=== PATIENT | female | born 1945 | race Caucasian/White ===

== ENCOUNTER 2016-05-25 16:59 | Observation (INO) | payer MEDICARE, MEDICAID ==
[~2016-05-25] VITALS: Ht 152.4 cm; Wt 54.9 kg
[~2016-05-25 16:59] MED LIST: AMLO10TA5 PO; BUSP15 PO; DICY10CA9 PO; ERGO400C PO; RISP0.254 PO; SYN25 PO; TOPI100T2 PO; ZES5 PO; [UNRECOGNIZED DRUG - CODE] PO; [UNRECOGNIZED DRUG - OTHER]; [UNRECOGNIZED DRUG - OTHER] PO
[2016-05-25 17:07] VITALS: BP 132/62; PULSE 78; O2SAT 98
[2016-05-25 18:13] LABS: APPEARANCE,URINE CLEAR (CLEAR,HAZY); COLOR,URINE YELLOW (YELLOW); OCCULT BLOOD,URINE NEGATIVE (NEGATIVE); PH,URINE 6.5 (5.0-8.0); UROBILINOGEN,URINE NORMAL (NORMAL)
--- NOTE | 2016-05-25 19:15 | ED.REPORT ---
HPI-Trauma Minor / Fall Date of Service May 25, 2016 ED Provider: MD Kyler This is a 71 year old female with a history of chronic back pain, L knee pain, bipolar disorder, ADHD brought to the emergency department by EMS complaining of L sided back pain that began after GLF just prior to arrival. Pt was walking to the bathroom in her home when she fell. Denies LOC, dizziness, numbness, tingling, fever, chills, shortness of breath, nausea, vomiting, or abdominal pain. Nursing Notes Stated Complaint: GLF Chief Complaint: Multiple Trauma/Fall Nursing Notes Reviewed: Yes Allergies: Coded Allergies: Sulfa (Sulfonamide Antibiotics) (Verified Allergy, Severe, 06/24/15) chlorpromazine HCl (Verified Allergy, Severe, tadive dyskinesia, 06/24/15) chlorpromazine (Unverified Allergy, Unknown, 06/24/15) Scheduled AmLODIPine-Expunged Drug, Do Not Renew! (AmLODIPine-Expunged Drug, Do Not Renew! ) 10 Mg Tablet 10 MG PO AM Buspirone-Expunged Drug, Do Not Renew! (Buspirone-Expunged Drug, Do Not Renew!) 15 Mg Tablet 15 MG PO BID Dicyclomine-Expunged Drug, Do Not Renew! (Dicyclomine-Expunged Drug, Do Not Renew!) 10 Mg Capsule 10 MG PO QID Ergocalciferol-Expunged Drug, Do Not Renew! (Vitamin D-Expunged Drug, Do Not Renew!) 400 Unit Capsule 2,000 UNIT PO AM Famotidine-Expunged Drug, Do Not Renew! (Famotidine-Expunged Drug, Do Not Renew! ) 20 Mg Tablet 20 MG PO 1000 Levothyroxine-Expunged Drug, Do Not Renew! (Synthroid-Expunged Drug, Do Not Renew!) 25 Mcg Tablet 0.025 MG PO DAILYAC Lisinopril-Expunged Drug, Do Not Renew! (Lisinopril-Expunged Drug, Do Not Renew! ) 5 Mg Tablet 5 MG PO AM Risperidone-Expunged Drug, Do Not Renew! (Risperidone-Expunged Drug, Do Not Renew!) 0.25 Mg Tablet 0.5 MG PO BID Topiramate-Expunged Drug, Do Not Renew! (Topiramate-Expunged Drug, Do Not Renew! ) 100 Mg Tablet 100 MG PO HS Miscellaneous Medications ([daily vit & min]) ([psyllium seed husk]) 1 TSP PO 1-3 times daily as needed constipation General Time Seen by MD: 19:14 Chief Complaint Fall Hx Obtained From: Patient Arrived By: Ambulance Onset Occurred: Just prior to arrival Symptom Duration: Since onset Severity: Current: Mild Pertinent Negative: Pt denies other symptoms Recent Healthcare: No recent doctor visit, No recent hospitalization Similar Sx Previous: No Past Medical History Past Medical History Notes: PCP: Dr. Landa Past Medical History Bipolar ADHD Reports: Hypertension Reports: Depression, Schizophrenia, Thyroid disease Past Surgical History Left hip replacement Reports: Appendectomy, Cholecystectomy, Tonsillectomy Reports: Tubal ligation Family History Mother had some longstanding psychotic disorder. Smoking History Never Smoker Social History Alcohol Use: Denies alcohol use Drug Use: Denies drug use Other Social History: Ambulatory Status Walker Review of Systems Constitutional: Denies: Chills, Fever Respiratory: Denies: Shortness of breath Musculoskeletal: Reports: Back pain Neurologic: Denies: Change LOC, Headache, Lightheaded, Numbness Complete sys rev & neg: except as marked. GI: Denies: Abdominal pain, Constipation, Diarrhea, Nausea, Vomiting Physical Exam Initial Vital Signs Vital Signs (First) Date Time Temp Pulse Resp B/P Pulse Ox O2 Delivery O2 Flow Rate FiO2 05/25/16 17:07 36.6 78 132/62 98 Room Air Initial VS: Unavailable Head / Eyes: Atraumatic, Normocephalic, PERRL ENT: Mucous membranes moist, Conjunctiva normal, No scleral icterus Respiratory: Breath sounds normal, Clear to auscultation, No respiratory distress Cardiovascular: Regular rate & rhythm, Heart sounds normal, Intact distal pulses Extremities: Vascular intact, Neuro intact, No swelling, No tenderness Skin: Warm, Dry, No cyanosis Psychiatric: Mood/affect normal, Behavior normal, Normal thought content General/Constitutional: Awake, Alert Making gyrating movements of arms and legs, difficult to understand Neck: Atraumatic, Supple, Full range of motion, No swelling, Non-tender, No midline vertebral tend Abdomen: Atraumatic, Soft, Non-tender, No guarding, No rebound, No distention Multiple well-healed surgical scars Back: Full range of motion Midline L5 tenderness to palpation Interpretation & Diagnostics Lab Results Interpretation Result Diagram: 05/25/16 1950 05/25/16 1950 Test 05/25/16 17:58 05/25/16 18:00 05/25/16 19:50 Hold Urine Received (Received) Urine Color Yellow (YELLOW) Urine Appearance Clear (CLEAR,HAZY) Urine pH 6.5 (5.0-8.0) Urine Specific [place] <1.005 (1.003-1.035) Urine Protein Negativemg/dL (NEG,TRACE) Urine Glucose (UA) Negativemg/dL (NEGATIVE) Urine Ketones Negativemg/dL (NEGATIVE) Urine Occult Blood Negative (NEGATIVE) Urine Nitrite Negative (NEGATIVE) Urine Bilirubin Negative (NEGATIVE) Urine Urobilinogen Normalmg/dL (NORMAL) Urine Leukocyte Esterase Large (NEGATIVE) Urine RBC 0-2/hpf (0-2) Urine WBC 11-50/hpf (0-5) Urine Epithelial Cells Occasional/hpf (NONE-MOD) Urine Crystals None seen (NONE SEEN) Urine Bacteria Few/hpf (NONE-FEW) Urine Hyaline Casts None/lpf (NONE) Urine Granular Casts None seen (NONE SEEN) Urine Waxy Casts None seen (NONE SEEN) Urine Red Blood Cell Casts None seen (NONE SEEN) Urine White Blood Cell Casts None seen (NONE SEEN) Urine Mucus None seen (None Seen) Urine Trichomonas None seen (NONE SEEN) Urine Yeast None (NONE SEEN) Urinalysis Comment None Urine Culture Reflexed Indicated White Blood Count 8.9th/mm3 (3.8-10.1) Red Blood Count 4.57mil/mm3 (3.90-5.20) Hemoglobin 13.9g/dL (12.0-15.6) Hematocrit 42.4% (35.0-46.0) Mean Corpuscular Volume 92.8fL (81-100) Mean Corpuscular Hemoglobin 30.4pg (27.0-35.0) Mean Corpuscular Hemoglobin Concent 32.8% (32.0-37.0) Red Cell Distribution Width 12.8% (12.3-15.4) Platelet Count 285bil/L (150-400) Neutrophils (%) (Auto) 56.5% (40-74) Lymphocytes (%) (Auto) 32.9% (14-46) Monocytes (%) (Auto) 8.9% (4-12) Eosinophils (%) (Auto) 1.2% (0-5) Basophils (%) (Auto) 0.3% (0-3) Sodium Level 144mEq/L (134-144) Potassium Level 4.3mEq/L (3.5-5.2) Chloride Level 105mEq/L (97-108) Carbon Dioxide Level 28mmol/L (18-29) Blood Urea Nitrogen 20mg/dL (8-27) Creatinine 0.83mg/dL (0.57-1.00) Estimat Glomerular Filtration Rate 97mL/min (>59) Glucose Level 88mg/dL (60-99) Calcium Level 10.0mg/dL (8.5-10.1) Total Bilirubin 0.2mg/dL (0.0-1.2) Aspartate Amino Transf (AST/SGOT) 17U/L (0-50) Alanine Aminotransferase (ALT/SGPT) 11U/L (0-32) Alkaline Phosphatase 69U/L (25-165) Total Protein 6.5g/dL (6.4-8.4) Albumin 4.1g/dL (3.4-5.0) Hold Joseph Top Tube Received (Received) Re-Eval/Medical Decision Med Decision/Clinical Course 71-year-old female with past medical history of psychiatric disorder brought in by EMS after a fall. Differential diagnosis includes but is not limited to fracture versus dislocation versus contusion versus urinary tract infection. Patient does have evidence of UTI, and a slightly altered at this time. CT scan of her back did not show any acute fracture. She had 5 out of 5 strength in all 4 extremities. Given her UTI, and slightly altered mental status, I have admitted her to the hospitalist service for IV antibiotics. She is amenable to the plan. Re-Evaluation/Progress : Time of Eval: 21:36 Re-Evaluation/Progress Note: Discussed plan for admission, all questions addressed. Consultation : Referral / Consult Name: Malena Burnett DO Consulted With: Hospitalist Call Returned at: 21:35 Tire Rebuilder: Accepts admit Counseled Regarding: Diagnosis, Lab results, Need for follow-up, Need for admission Discharge & Departure Impression: Primary Impression: UTI (urinary tract infection) Urinary tract infection type: site unspecified Hematuria presence: without hematuria Qualified Code: N39.0 - Urinary tract infection, site not specified Disposition: ADMITTED TO HOSPITAL Discharge Condition All VS Reviewed: Yes Condition: Stable Referrals: Fransico Landa MD (PCP) Scribe Attestation Portions of this note were transcribed by Quan Humphreys. I, Dr. Chávez personally performed the history, physical exam and medical decision-making; I reviewed and confirmed the accuracy of the information in the transcribed note. Signed by: gonzalo May. 05/25/2016, 23:00. Ruthie Chávez MD May 25, 2016 19:15 QUAN HUMPHREYS May 25, 2016 19:16
[2016-05-25] MEDS ORDERED: cefTRIAXone Inj 1,000 MG in Dextrose 5% Minibag Plus 50 ML IV SCH (19:45)
[2016-05-25] MEDS ORDERED: 0.9% Sodium Chloride 500 ML IV ONE (19:45)
[2016-05-25 20:01] LABS: BASOPHILS % (AUTO) 0.3 % (0-3); EOSINOPHILS % (AUTO) 1.2 % (0-5); MONOCYTES % (AUTO) 8.9 % (4-12); Mean Corpuscular Hemoglobin 30.4 pg (27.0-35.0); Mean Corpuscular Volume 92.8 fL (81-100); NEUTROPHILS % (AUTO) 56.5 % (40-74); Platelet Count 285 bil/L (150-400)
[2016-05-25 20:11] VITALS: BP 120/59; PULSE 79; O2SAT 98
[2016-05-25] MEDS ORDERED: Polyethylene Glycol (PEG) 17 Gm Powder PO PRN ×2 (21:50→23:40)
[2016-05-25] MEDS ORDERED: Alum-Mag Hydrox-Simeth 30 mL Suspension PO PRN ×2 (21:50→23:40)
[2016-05-25] MEDS ORDERED: Ondansetron 2 mg/mL 2 mL Inj IVPUSH PRN ×2 (21:50→23:40)
--- NOTE | 2016-05-25 22:30 | NUR ---
Admission Pt arrived from the ER after receiving report from Ruthie Hobbs RN. Alert and oriented x 3 with episodes of confusion and "word salad" usage. The pt is very muffled at times;however, she was able to given a complete health hx and list of home medication taken. No s/sx of distress noted at this time. Denies shortness of breath, chest pain, general discomfort, and abd pain. Vitals stable/afebrile on RA with SL to RT wrist. The pt changed into a gown after encouragement and assisted with bedpan usage. The pt is resting in bed at this time without distress. Will continue to monitor for changes to health status.
[2016-05-25 22:38] VITALS: BP 130/70; PULSE 69; RESP 20; O2SAT 97
--- NOTE | 2016-05-26 02:59 | PCM.HPMED ---
Subjective Date of Service May 25, 2016 Primary Provider: Admitting Physician: Malena Burnett DO Primary Care Physician: Fransico Landa MD Attending Physician: Malena Burnett DO Chief Complaint: Back pain History of Present Illness: Patient is a 71-year-old female with chronic back pain, depression, anxiety, bipolar disorder and hypertension presenting with back pain following a ground level fall. Patient reports walking to the bathroom from her bedroom and along the way sustained a fall. She reports her right leg gave way resulting on her falling onto her back and hitting her head, though she denies losing consciousness. Patient subsequently used her Life Alert bracelet to summon EMS as she was unable to get up. At time of visit, the patient reports her pain has improved since her fall but difficult to assess due to her chronic back pain. Patient states she usually requires a walker to help her ambulate. Patient endorses urinary frequency, which she attributes to increased fluid intake but otherwise denies fever, chills, dysuria, abdominal pain, chest pain, shortness of breath. Patient is insistent about leaving tomorrow early in the morning as she has a caregiver scheduled to visit her at 9AM. In the ED, vitals: temp 36.7, HR 78, BP 132/68. CBC and CMP are unremarkable. UA with large leukocyte esterase, pyuria and few bacteria. Review of Systems: A comprehensive review of systems was conducted with the patient and found to be negative except as above in the History of Present Illness. Allergies Coded Allergies: Sulfa (Sulfonamide Antibiotics) (Verified Allergy, Severe, 06/24/15) chlorpromazine HCl (Verified Allergy, Severe, tadive dyskinesia, 06/24/15) chlorpromazine (Unverified Allergy, Unknown, 06/24/15) Home Medications From outpatient records in [facility] (04/24/2016). Requires reconciliation. ASA 81mg daily Benztropine 1mg BID Buspirone 15mg BID Calcium 500 + Vit D 500mg BID Celexa 10mg BID Dicyclomine 10mg QID Enbrel inject 1mL subQ weekly Multivitamin one tablet daily Pantoprazole 40mg daily Trazodone 25mg daily Tylenol 500mg Q6 hours PRN Zyrtec 5mg daily PMH Chronic back pain Right knee and hip pain Scoliosis Spinal stenosis Hypertension Bipolar affective disorder Osteoporosis IBS Tardive dyskinesia Depression and anxiety . Surgical History Appendectomy Cholecystectomy Tonsillectomy Left hip replacement . Family History Mother with rheumatoid arthritis and schizophrenia Father with prostate cancer at [id number] Social History Hx Alcohol Use: No Hx Substance Use: No Hx Tobacco Use: No Smoking Status: Never Smoker Living Arrangement: Alone (Currently living alone as is rehabilitating at [facility]) Exam Vital Signs Vital Sign - Last Date Time Temp Pulse Resp B/P Pulse Ox O2 Delivery O2 Flow Rate FiO2 05/25/16 22:38 36.3 69 20 130/70 97 Room Air Exam General: Patient lying in bed. No acute distress, well-developed, well-nourished , appropriately interactive. Movement disorder. HEENT: Normocephalic, atraumatic. External ears without defect. Difficult to assess pupils as patient has difficulty trying to keep them open. Moist mucosa. Poor dentition. Neck: Supple. No lymphadenopathy or thyromegaly. Cardiovascular: Regular rate and rhythm with no murmurs, rubs, or gallops appreciated Pulmonary: Clear to auscultation bilaterally with no crackles, wheezes, or rhonchi. Normal respiratory effort with no use of accessory muscles. Abdomen: Bowel tones present. Soft, nontender, nondistended. Extremities: No clubbing, cyanosis, edema, or lymphadenopathy appreciated. Muscle atrophy, especially in lower extremities. Skin: Normal temperature, turgor, and texture; no rash, ulcers, or subcutaneous nodules appreciated. Neurological: Cranial nerves grossly intact. Psychiatric: Flight of ideas and tangential during conversation. Lab and Diagnostics Result Diagram: 05/25/16194905/25/161949 Assessment & Plan Patient is a 71-year-old female with chronic back pain, bipolar disorder and hypertension presenting with back pain following a ground level fall. 1. Acute on chronic back pain post ground level fall. Present on admission. Active -Back pain improving -Read of CT back pending -Acetaminophen PRN pain 2. Acute urinary tract infection. Present on admission. Active -UA with large leukocyte esterase, few bacteria and pyuria -Ceftriaxone -Urine culture pending 3. Depression and anxiety, chronic. Present on admission -Continue home dose buspirone, Celexa 4. Tardive dyskinesia, chronic. Present on admission -Continue home dose benztropine 5. Hypertension, chronic. Present on admission -Currently normotensive -Follow vitals 6. Osteoporosis, chronic. Present on admission -Continue home dose vitamin and mineral supplementation Patient Status: Patient is admitted under observation status with expected length of stay less than 2 midnights due to severity of presenting symptoms and risk of adverse event. VTE Prophylaxis: SCDs Resuscitation Status: DNR/DNI:Do Not Resuscitate/Intubate Attending Statement The patient was seen and examined together with house staff on 05/25/2015 and I agree with the history, exam and plan as outlined in the note above. Sunil Hobbs DO May 25, 2016 23:36 Malena Burnett DO May 26, 2016 03:20
--- NOTE | 2016-05-26 03:45 | NUR ---
CT Pt with CT.
--- NOTE | 2016-05-26 04:00 | NUR ---
CT Pt back from CT.
[2016-05-26 06:17] VITALS: BP 143/63; PULSE 66; RESP 20; O2SAT 95
[2016-05-26] MEDS ORDERED: DICY10CA13 PO (06:52)
[2016-05-26] MEDS ORDERED: BUSP15TA3 PO (06:52)
[2016-05-26] MEDS ORDERED: ERGO2000 PO (06:52)
--- NOTE | 2016-05-26 08:01 | NUR ---
pt is scheduled for a nuclear stress test-NPO medications are being held until after test Addendum: 05/26/16 at 1613 by MAVIS SRAAVIA RN morning report was an error. stress test was for pt previously in the same room.
[2016-05-26] MEDS: Pantoprazole 40 mg ER24 Tablet PO SCH (08:52)
[2016-05-26] MEDS: BusPIRone 15 mg Dividose Tablet PO SCH ×2 (08:52→21:22)
--- NOTE | 2016-05-26 11:11 | DRSVH ---
PROCEDURE: CT BRAIN WITHOUT CONTRAST ([id number]) INDICATIONS: ground level fall TECHNIQUE: Noncontrast 4.5 mm thick angled axial sections acquired from the foramen magnum to the vertex, with c oronal reformats. COMPARISON: [facility], CT, BRAIN W/O CONTRAST, 05/24/2010, 0:06. FINDINGS: Image quality: Excellent. CSF spaces: Basal cisterns are patent. No extra-axial fluid collections. The ventricles are symmet jeison in size and shape. Brain: No intracranial bleeds or masses. There is cerebral volume loss for age, with resultant vent ricular and sulcal prominence. There are periventricular and deep white matter chronic small vessel ischemic changes. There is intracranial internal carotid artery atherosclerosis. 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 Skull and face: Calvarium and visualized facial bones appear intact, without suspicious lesions. Sinuses: Visualized sinuses and mastoids are clear. IMPRESSION: 1. No acute intracranial process. 2. Moderate atrophy and chronic microvascular ischemic changes. Dictated by: Ashley Marc M.D. on 05/26/2016 at 11:06 Approved by: Ashley Marc M.D. on 05/26/2016 at 11:09
--- NOTE | 2016-05-26 11:34 | NUR ---
Social Work Screen Note: SW met with patient at bedside to discuss discharge plan. Patient is a 71 year old female admitted under observations status on 05/25/16 for UTI. Patient has periods of confusion during assessment. Patient states residing in [facility] with . Patient states is currently at [facility] at this time. Patient states PCP as MD Landa. Patient pharmacy of choice as [facility]. Patient has HHC history with [facility] in past. Patient uses a cane and walker at bedside. Patient states having no previous SNF history. Patient states being active with [employer] for caregiver support at home M-Wed. Patient payer as [employer] and [facility]. SW contacted [facility] and spoke with cranberry farm supervisor Monica who states that patient baseline confused. Patient receives services -Wednesday with primary jig operator as Anitha. Services provided 7:30am-10pm at home. Caregiver Anitha has no availability to begin services with patient today. Services to begin tomorrow. MD aware and to hold patient tonight for discharge tomorrow. Patient caregiver to report to hospital tomorrow morning to discharge patient home and provide caregiver support. SW to await PT eval today to ensure home safety needs. SW to follow PLAN: Home with caregiver support via [employer] [facility]. Caregiver support to begin tomorrow at 7:30am. Caregiver Anitha to provide transport home at discharge tomorrow. SW to follow Andrade MUNOZ Addendum: 05/26/16 at 1153 by RANDALL DISLA Amended: Links added.
[2016-05-26 13:49] VITALS: BP 124/78; PULSE 86; RESP 20; O2SAT 96
--- NOTE | 2016-05-26 15:22 | PCM.PNMED ---
Subjective Date of Service May 26, 2016 Subjective denies any new issues/complaints. says back pain better today Exam Vital Signs Vital Sign - Last Date Time Temp Pulse Resp B/P Pulse Ox O2 Delivery O2 Flow Rate FiO2 05/26/16 13:49 36.8 86 20 124/78 96 Room Air Intake and Output 05/25/16 05/25/16 05/26/16 Cumulative From/Thru 15:00 23:00 07:00 05/25/16 17:07 - 05/26/16 07:00 Intake Total 500 ml 400 ml 900 ml Output Total 800 ml 800 ml Balance 500 ml -400 ml 100 ml Intake Oral 400 ml 400 ml IV Total 500 ml 500 ml Output Urine Total 800 ml 800 ml # Bowel Movements 0 0 General: Alert, Oriented X3, Cooperative, No Acute Distress Head: Normal Eyes: Scleral Anicteric Nose: Mucous Membr Moist/[place] Mouth: Mucous Membr Moist/[place] Neck: Supple Chest & Lungs: Chest Wall Normal, Clear to auscultation & percussion Cardiovascular: Regular Rate/Rhythm Abdomen: Non-tender, Non-distended, Normoactive bowel tones, Soft Extremities: No cyanosis/clubbing/edma bilat Neurological: Grossly Neurologically Intact, Normal Speech IVs and Medications Medications Reviewed: Medications were reviewed in detail Lab and Diagnostics Result Diagram: 05/25/16194905/25/161949 X-Rays, CTs and MRIs Date of Service: 05/26/16 0254 PROCEDURE: CT BRAIN WITHOUT CONTRAST ([id number]) IMPRESSION: 1. No acute intracranial process. 2. Moderate atrophy and chronic microvascular ischemic changes. Dictated by: Ashley Marc M.D. on 05/26/2016 at 11:06 Approved by: Ashley Marc M.D. on 05/26/2016 at 11:09 Assessment & Plan 71-year-old female with chronic back pain, bipolar disorder and hypertension presenting with back pain following a ground level fall. # Acute on chronic back pain post ground level fall. Present on admission. Improved -Back pain improving -f/u pending lumbar CT # Acute urinary tract infection. Present on admission. Active -UA with large leukocyte esterase, few bacteria and pyuria -Ceftriaxone (day 2) -Urine culture pending # Depression and anxiety, chronic. Present on admission. stable -Continue home dose buspirone, Celexa # Tardive dyskinesia, chronic. Present on admission -Continue home dose benztropine # Hypertension, chronic. Present on admission -Currently normotensive -Follow vitals # Osteoporosis, chronic. Present on admission -Continue home dose vitamin and mineral supplementation Dispo: likely home with caregiver tomorrow pending lumbar CT and improved symptoms VTE Prophylaxis: SCDs VTE Mechanical Devices: Intermittant Pneumatic CD Resuscitation Status: DNR/DNI:Do Not Resuscitate/Intubate Time spent 25 min Kaushal Lopez May 26, 2016 15:22
--- NOTE | 2016-05-26 18:22 | NUR ---
Case Management: THELMA explained to patient at 1715, all questions answered. Signed original in chart, pt given a copy. Phyllis Landon RN
[2016-05-26] MEDS ORDERED: cefTRIAXone Inj 1,000 MG in Dextrose 5% Minibag Plus 50 ML IV SCH (20:30)
[2016-05-26] MEDS ORDERED: 0.9% Sodium Chloride 250 ML ONE (21:18)
[2016-05-27 04:28] VITALS: BP 109/71; PULSE 73; RESP 18; O2SAT 97
--- NOTE | 2016-05-27 06:20 | NUR ---
Voiding started patient on Rocephin IV tonight. patient up to bathroom. voiding regularly. denies pain/discomfort with voiding. drinking cranberry juice frequently at bedside. will continue to monitor.
[2016-05-27] MEDS: Pantoprazole 40 mg ER24 Tablet PO SCH (08:04)
[2016-05-27] MEDS: BusPIRone 15 mg Dividose Tablet PO SCH (08:05)
--- NOTE | 2016-05-27 09:00 | NUR ---
Social Work: Discharge Data: Pt is on day 2 of hospitalization. EMR reviewed. PT recommending HH for pt. LEVI MAKER met with pt and caregiver at bedside, HH choice list given. Pt states that she prefers [facility]. LEVI MAKER referred pt to [facility] for RN/PT/OT. Spoke with Yuri Paz [phone]. Access given, F2F ready for MD to sign. No further d/c planning needs anticipated at this time. LEVI MAKER will continue to follow if needs arise. Assessment: Pt who is independent at baseline. Plan: Pt will d/c home via POV with caregiver this morning with [facility], RN/PT/OT. No further d/c planning needs anticipated at this time. LEVI MAKER will continue to follow if needs arise. ALEXANDER Lozoya
--- NOTE | 2016-05-27 09:21 | PCM.DIMED ---
Discharge Instructions Date of Service May 27, 2016 Dates of Hospitalization May 25, 2016 at 21:55 Discharge Diagnosis Discharge Diagnosis # Acute on chronic back pain post ground level fall. Present on admission. Improved # Suspected acute urinary tract infection ruled out with urine culture. # Depression and anxiety, chronic. Present on admission. stable # Tardive dyskinesia, chronic. Present on admission # Hypertension, chronic. Present on admission. stable. # Osteoporosis, chronic. Present on admission Medication Instructions Resume home medications as before Diet Low fat, Low Sodium, Heart Healthy Activity Home Health Phyical Therapy Call your provider Fever or Chills, Shortness of breath, Bleeding, Chest pain, Weakness (unilateral ) Patient Instructions Seek immediate medical attention if any new or worsening signs or symptoms occur. Follow-up plan 1. Followup with primary care provider as needed. Follow-up Provider: Fransico Landa MD, Masoud May 27, 2016 09:21
--- NOTE | 2016-05-27 09:50 | NUR ---
Discharge: Patient discharged to home @ approx 0950. IV d/c'd intact. Personal belongings sent home with patient. Reviewed home medication list, d/c instructions, and follow up appointment. Verbalized understanding. Patient escorted to main entrance via wheelchair accompanied by TAIL WORKER.
--- NOTE | 2016-05-27 17:42 | PCM.DC.MED ---
Discharge Summary Date of Service May 27, 2016 Dates of Hospitalization Date of Hospital Admission May 25, 2016 at 21:55 Date of Discharge: May 27, 2016 Providers: Admitting Physician: Malena Burnett DO Primary Care Physician: Fransico Landa MD Attending Physician: Malena Burnett DO Diagnosis at Time of Discharge Diagnosis at Time of Discharge # Acute on chronic back pain post ground level fall. Present on admission. Improved # Suspected acute urinary tract infection ruled out with urine culture. # Depression and anxiety, chronic. Present on admission. stable # Tardive dyskinesia, chronic. Present on admission # Hypertension, chronic. Present on admission. stable. # Osteoporosis, chronic. Present on admission Procedures XRay, CTs & MRIs Date of Service: 05/26/16 0254 PROCEDURE: CT BRAIN WITHOUT CONTRAST ([id number]) IMPRESSION: 1. No acute intracranial process. 2. Moderate atrophy and chronic microvascular ischemic changes. Dictated by: Ashley Marc M.D. on 05/26/2016 at 11:06 Approved by: Ashley Marc M.D. on 05/26/2016 at 11:[address] also reviewed and without any reported acute finding Brief History As noted in H&P by Dr. Hobbs: Patient is a 71-year-old female with chronic back pain, depression, anxiety, bipolar disorder and hypertension presenting with back pain following a ground level fall. Patient reports walking to the bathroom from her bedroom and along the way sustained a fall. She reports her right leg gave way resulting on her falling onto her back and hitting her head, though she denies losing consciousness. Patient subsequently used her Life Alert bracelet to [email or web address] as she was unable to get up. At time of visit, the patient reports her pain has improved since her fall but difficult to assess due to her chronic back pain. Patient states she usually requires a walker to help her ambulate. Patient endorses urinary frequency, which she attributes to increased fluid intake but otherwise denies fever, chills, dysuria, abdominal pain, chest pain, shortness of breath. Patient is insistent about leaving tomorrow early in the morning as she has a caregiver scheduled to visit her at 9AM. In the ED, vitals: temp 36.7, HR 78, BP 132/68. CBC and CMP are unremarkable. UA with large leukocyte esterase, pyuria and few bacteria. Hospital Course # Acute on chronic back pain post ground level fall. Present on admission. Resolved -Back pain resolved per patient -lumbar CT without acute finding (not reported in [facility] but available in [facility]) # Acute urinary tract infection. Present on admission. Active -UA with large leukocyte esterase, few bacteria and pyuria -Ceftriaxone (day 3) -Urine culture suggest contamination. no further Abx on discharge # Depression and anxiety, chronic. Present on admission. stable -Continue home dose buspirone, Celexa # Tardive dyskinesia, chronic. Present on admission -Continue home dose benztropine # Hypertension, chronic. Present on admission -Currently normotensive # Osteoporosis, chronic. Present on admission -Continue home dose vitamin and mineral supplementation by day of d/c lungs CTA bilat. Exam Vital Signs (Last) Date Time Temp Pulse Resp B/P Pulse Ox O2 Delivery O2 Flow Rate FiO2 05/27/16 04:28 36.4 73 18 109/71 97 Room Air Test 05/25/16 17:58 05/25/16 18:00 05/25/16 19:50 Hold Urine Received (Received) Urine Color Yellow (YELLOW) Urine Appearance Clear (CLEAR,HAZY) Urine pH 6.5 (5.0-8.0) Urine Specific [place] <1.005 (1.003-1.035) Urine Protein Negativemg/dL (NEG,TRACE) Urine Glucose (UA) Negativemg/dL (NEGATIVE) Urine Ketones Negativemg/dL (NEGATIVE) Urine Occult Blood Negative (NEGATIVE) Urine Nitrite Negative (NEGATIVE) Urine Bilirubin Negative (NEGATIVE) Urine Urobilinogen Normalmg/dL (NORMAL) Urine Leukocyte Esterase Large (NEGATIVE) Urine RBC 0-2/hpf (0-2) Urine WBC 11-50/hpf (0-5) Urine Epithelial Cells Occasional/hpf (NONE-MOD) Urine Crystals None seen (NONE SEEN) Urine Bacteria Few/hpf (NONE-FEW) Urine Hyaline Casts None/lpf (NONE) Urine Granular Casts None seen (NONE SEEN) Urine Waxy Casts None seen (NONE SEEN) Urine Red Blood Cell Casts None seen (NONE SEEN) Urine White Blood Cell Casts None seen (NONE SEEN) Urine Mucus None seen (None Seen) Urine Trichomonas None seen (NONE SEEN) Urine Yeast None (NONE SEEN) Urinalysis Comment None Urine Culture Reflexed Indicated White Blood Count 8.9th/mm3 (3.8-10.1) Red Blood Count 4.57mil/mm3 (3.90-5.20) Hemoglobin 13.9g/dL (12.0-15.6) Hematocrit 42.4% (35.0-46.0) Mean Corpuscular Volume 92.8fL (81-100) Mean Corpuscular Hemoglobin 30.4pg (27.0-35.0) Mean Corpuscular Hemoglobin Concent 32.8% (32.0-37.0) Red Cell Distribution Width 12.8% (12.3-15.4) Platelet Count 285bil/L (150-400) Neutrophils (%) (Auto) 56.5% (40-74) Lymphocytes (%) (Auto) 32.9% (14-46) Monocytes (%) (Auto) 8.9% (4-12) Eosinophils (%) (Auto) 1.2% (0-5) Basophils (%) (Auto) 0.3% (0-3) Sodium Level 144mEq/L (134-144) Potassium Level 4.3mEq/L (3.5-5.2) Chloride Level 105mEq/L (97-108) Carbon Dioxide Level 28mmol/L (18-29) Blood Urea Nitrogen 20mg/dL (8-27) Creatinine 0.83mg/dL (0.57-1.00) Estimat Glomerular Filtration Rate 97mL/min (>59) Glucose Level 88mg/dL (60-99) Calcium Level 10.0mg/dL (8.5-10.1) Total Bilirubin 0.2mg/dL (0.0-1.2) Aspartate Amino Transf (AST/SGOT) 17U/L (0-50) Alanine Aminotransferase (ALT/SGPT) 11U/L (0-32) Alkaline Phosphatase 69U/L (25-165) Total Protein 6.5g/dL (6.4-8.4) Albumin 4.1g/dL (3.4-5.0) Hold Joseph Top Tube Received (Received) Discharge Medications Discharge Medications Buspirone (Buspirone) 15 Mg Tablet 15 MG PO BID (Reported) Dicyclomine (Dicyclomine) 10 Mg Capsule 10 MG PO QID (Reported) Ergocalciferol (Vitamin D2) (Vitamin D2) 2,000 Unit Tablet 2,000 UNIT PO MORNING (Reported) Miscellaneous Medications ([daily vit & min]) (Reported) ([psyllium seed husk]) 1 TSP PO (Reported) 1-3 times daily as needed constipation Additional med instructions Resume home medications as before Followup Plan Disposition: Home with HH and caregiver Follow-up plan 1. Followup with primary care provider as needed. Discharge Diet: Low fat, Low Sodium, Heart Healthy Discharge Activity: Home Health Phyical Therapy Patient Instructions Seek immediate medical attention if any new or worsening signs or symptoms occur. Follow-up Provider: Fransico Landa MD Time spent 30 min copies to: Fransico Landa MD, Masoud May 27, 2016 17:42
--- NOTE | 2016-06-01 14:24 | DRSVH ---
CORRECTED ACCESSION/PLACER ON 06/01/16 CORRECTED MR# ON 05/27/16 PROCEDURE: CT LUMBAR SPINE WITHOUT CONTRAST ([id number]) INDICATIONS: GROUND LEVEL FALL TECHNIQUE: Noncontrast 3 mm thick sections acquired from the T12 level to the sacrum. Sagittal and coronal refo rmats were constructed. For radiation dose reduction, the following was used: automated exposure co ntrol. COMPARISON: [facility], MR, MR LUMBAR SPINE WO CON, 02/19/2016, 7:52. FINDINGS: Image quality: Excellent. Bones: There is mild retrolisthesis redemonstrated at T11-T12, T12-L1, and L1-L2. There is also gra de one anterolisthesis at L4-L5 and L5-S1. The findings appear similar to the prior study. No acute fractures. There is severe disc space narrowing demonstrated at T11-T12, T12-L1, and L1-L2. Modera te to severe narrowing is also demonstrated at L2-L3 and L5-S1 with moderate narrowing at L3-L4 and L 4-L5. There are multilevel disc osteophyte complexes and disc bulges redemonstrated throughout the l umbar spine which were better evaluated on the recent MRI. Multilevel facet arthropathies also redem onstrated including severe arthropathy at L4-L5 with associated sclerosis. Severe spinal canal narrowing is again noted at T12-L1 and L4-L5. Moderate narrowing redemonstrated at T11-T12 and L5-S1. Multilevel neuroforaminal narrowing is also redemonstrated including severe bi lateral narrowing at T11-T12, T12-L1, L1-L2, and L5-S1. Severe narrowing also demonstrated on the ri ght at L2-L3, L3-L4, and L4-5. Soft tissues: No retroperitoneal masses or hematomas. Visualized aorta is normal in caliber. There is a probable exophytic fibroid extending along the left posterior aspect of the uterus. This measu res up to approximately 3 cm. IMPRESSION: 1. No acute fractures. 2. Multilevel grade 1 degenerative spondylolisthesis redemonstrated at T11-T12, T12-L1, L1-L2, L4-L5 , and L5-S1. Findings are similar to the prior MRI. 3. Multilevel spinal canal narrowing and neuroforaminal stenoses redemonstrated, better evaluated on the recent MRI. Dictated by: Sanjiv Saunders M.D. on 05/25/2016 at 20:39 Approved by: Sanjiv Saunders M.D. on 05/25/2016 at 20:57
[2016-08-06] MEDS ORDERED: NYST1POW23 MC (10:58)
[2016-08-06] MEDS ORDERED: BUSP15TA3 PO (10:58)
[2016-08-06] MEDS ORDERED: ETAN50PE SQ (10:58)
[2016-08-06] MEDS ORDERED: MULT-909 PO (10:58)
[2016-08-06] MEDS ORDERED: KEN25CR EXT (10:58)
[2016-08-06] MEDS ORDERED: OMEP20TA24 PO (10:58)
[2016-08-06] MEDS ORDERED: PANT40TA3 PO (10:58)
[2016-08-06] MEDS ORDERED: ASPI-973 PO (10:58)
[2016-08-06] MEDS ORDERED: SENN-133 PO (10:58)
[2016-08-06] MEDS ORDERED: SIME180C36 PO (10:58)
[2016-08-06] MEDS ORDERED: BENZ0.5T3 PO (10:58)
[2016-08-06] MEDS ORDERED: PSYL798P2 PO (10:58)
[2016-08-06] MEDS ORDERED: MUPI15CR11 TOP (10:58)
[2016-08-06] MEDS ORDERED: CHOL200047 PO (10:58)
[2016-08-06] MEDS ORDERED: MULT-1018 PO (10:58)
[2016-08-06] MEDS ORDERED: VIT1CAPS7 PO (10:58)
[2016-08-06] MEDS ORDERED: LACT1TAB11 PO (10:58)
[2016-08-06] MEDS ORDERED: CETI10CA PO (10:58)
[2016-08-06] MEDS ORDERED: DICY10CA13 PO (10:58)
[2016-08-06] MEDS ORDERED: TRAZ-115 PO (10:58)
[2016-08-06] MEDS ORDERED: CALC600T12 PO (10:58)
[2016-08-06] MEDS ORDERED: ACET325T51 PO (10:58)
[2016-08-06] MEDS ORDERED: TERB12GE TP (10:58)
[2016-08-06] MEDS ORDERED: CITA10TA14 PO (10:58)
[2016-09-03] MEDS ORDERED: ACET-2605 PO (15:08)
[2016-09-03] MEDS ORDERED: PANT40TA3 PO (15:08)
== END 2016-05-27 09:51 | disposition home or self-care (01) ==
LOC: EDUNIT# 16:59 → EDBD 16:59 → SED 16:59 → MPC 21:55
PROVIDERS: ADMIT Internal Medicine; ATTEND Internal Medicine
DX: M54.5 Low back pain (principal); F31.9 Bipolar disorder, unspecified; F41.9 Anxiety disorder, unspecified; G24.9 Dystonia, unspecified; I10 Essential (primary) hypertension; M81.0 Age-related osteoporosis without current pathological fracture; E03.9 Hypothyroidism, unspecified; W18.30XA Fall on same level, unspecified, initial encounter; Y93.01 Activity, walking, marching and hiking; Y92.012 Bathroom of single-family (private) house as the place of occurrence of the external cause; Y99.8 Other external cause status; Z96.642 Presence of left artificial hip joint; Z66 Do not resuscitate
CPT/HCPCS: 36415; 70450; 72131; 80053; 81000; 85025; 87086; 87088; 96365; 97162; 99285; G0378; G8978; G8979; J0696; J7030; J7050

== ENCOUNTER 2016-06-27 14:33 | Emergency (ER) | payer MEDICARE, MEDICAID ==
[~2016-06-27 14:33] MED LIST changes: -AMLO10TA5 PO; -BUSP15 PO; +BUSP15TA3 PO; +DICY10CA13 PO; -DICY10CA9 PO; +ERGO2000 PO; -ERGO400C PO; -RISP0.254 PO; -SYN25 PO; -TOPI100T2 PO; -ZES5 PO; -[UNRECOGNIZED DRUG - CODE] PO
[2016-06-27 15:00] VITALS: BP 108/53; PULSE 82; RESP 18; O2SAT 100
--- NOTE | 2016-06-27 15:03 | ED.REPORT ---
HPI-Neck Pain Free Text HPI Notes Jun 27, 2016 ED Provider: Emma Gabriel History of Present Illness: 71-year-old here from pain after a fall. She had a mechanical fall tripped over her knees and landed on her bottom. She has low back pain and buttocks pain, right hip pain and some neck pain. She states she had neck pain in the past and this is only minimally worse. No nausea vomiting or diarrhea. No loss of consciousness. She is not on blood thinners. She only hit her head lightly as she landed on her bottom and then rolled to her stomach and hit the front of her head. She did walk on the scene. NO LOC Nursing Notes Stated Complaint: GROUND LEVEL FALL Chief Complaint: General Complaint Nursing Notes Reviewed: Yes Allergies: Coded Allergies: Sulfa (Sulfonamide Antibiotics) (Verified Allergy, Severe, 06/24/15) chlorpromazine HCl (Verified Allergy, Severe, tadive dyskinesia, 06/24/15) chlorpromazine (Unverified Allergy, Unknown, 06/24/15) Scheduled Buspirone (Buspirone) 15 Mg Tablet 15 MG PO BID Dicyclomine (Dicyclomine) 10 Mg Capsule 10 MG PO QID Ergocalciferol (Vitamin D2) (Vitamin D2) 2,000 Unit Tablet 2,000 UNIT PO MORNING Scheduled PRN Ibuprofen (Ibuprofen) 600 Mg Tablet 600 MG PO TID PRN PRN For Pain Miscellaneous Medications ([daily vit & min]) ([psyllium seed husk]) 1 TSP PO 1-3 times daily as needed constipation General Time Seen by Provider: 15:03 Chief Complaint Neck pain fell onto bottom/low back. Hx Obtained From: Patient Arrived By: Ambulance Onset Occurred: Just prior to arrival Symptom Duration: Since onset Progression Since Onset: Unchanged Caused by: Fall Context: Occurred at: Home Location: : Posterior neck (low back, R hip, sacral area) Associated with: Reports: Back pain Additional Notes: neck. low back pain, r hip pain after mechanical fall Pertinent Negative: Pt denies other symptoms Exacerbated by: Palpation Similar Sx Previous: Yes Past Medical History Past Medical History Notes: PCP: Dr. Landa Past Medical History Bipolar ADHD Reports: Hypertension Reports: Depression, Schizophrenia, Thyroid disease Past Surgical History Left hip replacement Reports: Appendectomy, Cholecystectomy, Tonsillectomy Reports: Tubal ligation Family History Mother had some longstanding psychotic disorder. Smoking History Never Smoker Social History Alcohol Use: Denies alcohol use Drug Use: Denies drug use Other Social History: Ambulatory Status Walker Review of Systems Cardiovascular: Denies: Chest pain GI: Denies: Abdominal pain, Hematemesis, Hematochezia, Melena, Nausea, Rectal pain, Vomiting Musculoskeletal: Reports: Back pain, Lumbar pain, Neck pain Complete sys rev & neg: except as marked. Physical Exam Initial Vital Signs Vital Signs (First) Date Time Temp Pulse Resp B/P Pulse Ox O2 Delivery O2 Flow Rate FiO2 06/27/16 15:00 37.2 82 18 108/53 100 Room Air Initial VS: Reviewed Head / Eyes: Atraumatic ENT: Conjunctiva normal, No scleral icterus Respiratory: Breath sounds normal, Clear to auscultation, No respiratory distress Cardiovascular: Regular rate & rhythm, Heart sounds normal Skin: Warm, Dry, No cyanosis Psychiatric: Mood/affect normal, Behavior normal, Normal thought content ENT: Atraumatic, Airway patent, Mucous membranes moist, Pharynx NL poor dental hygiene. around teeth and on tongue blue, stated from cereal Flank / Spine / Paraspinal: Positive: Lumbar paraspinal tend... (Mid), Lumbar spine tender... (Mid), Sacral paraspinal tend... (Mid), Sacral spine tender... ( Mid) back tenderness throughout lumbar paraspinal msk and midline. Pain down to sacral area. Tenderness and spasm noted to paraspinal msk, traps, pain with palpation of her midline spine as well. Interpretation & Diagnostics Interpretation & Diagnostics: lumbar - IMPRESSION: No fracture. No acute osseous lesion. If there are persistent symptoms or continued clinical suspicion for pathology, then MRI should be considered for further evaluation. hip/pelvis- IMPRESSION: No fracture. No osseous lesion. If there are persistent symptoms or clinical suspicion for pathology, then repeat radiographs or advanced imaging (CT, MRI or bone scan) should be considered for further evaluation. cervical- IMPRESSION: No fracture. No acute osseous lesion. If there are persistent symptoms or continued clinical suspicion for pathology, then MRI should be considered for further e Re-Eval/Medical Decision Med Decision/Clinical Course Discussed negative x-rays with patient. She should rest at home. Take OTC pain meds as needed. Follow up with PCP early next week for re-eval. Discharge & Departure Shift Change Sign-Out Imaging Studies: Imaging discussed Response to Therapy: Unchanged Primary Impression: Lumbar spine strain Encounter type: initial encounter Qualified Code: S39.012A - Strain of muscle, fascia and tendon of lower back, initial encounter Additional Impressions: Strain of neck Encounter type: initial encounter Qualified Code: S16.1XXA - Strain of muscle, fascia and tendon at neck level, initial encounter Contusion of back Encounter type: initial encounter Laterality: unspecified laterality Qualified Code: S20.229A - Contusion of unspecified back wall of thorax, initial encounter Contusion of unspecified part of head, initial encounter Disposition: Home Patient Instructions: Low Back Strain (ED) Additional Instructions: Take 975 mg of Tylenol 3 times a day as needed for pain. You may also take 800 mg of ibuprofen 3 times a day as needed for pain. Use ice and heat alternating. Lots of rest over the next few days. Gentle movements as pain allows. Follow-up with your primary care provider early next week. Return immediately to ER if worsening pain, loss of bowel or bladder, fevers, inability to walk, or any other worsening in condition. Referrals: Fransico Landa MD (PCP) EDSupervising Provider for APC: Norberto Michaud MD copies to: Fransico Landa MD, Linnea K ARNP Jun 27, 2016 15:03
--- NOTE | 2016-06-27 16:55 | DRSVH ---
PROCEDURE: X-RAY LUMBAR SPINE, 2 OR 3 VIEW INDICATIONS: pain TECHNIQUE: 3 views of the lumbar spine were acquired. COMPARISON: [facility], CR, XR LUMBAR SPINE W FL EX MIN 4VW, 03/30/2016, 9:03. FINDINGS: Bones: 5 itd-[id number]-[id number] vertebrae are present. Convex left scoliosis is stable. Mild L3 over L4 an d L4-L5 anterolisthesis is stable. Multilevel degenerative disease and facet arthropathy. No verteb ral body compression fractures. No suspicious bony lesions. Soft tissues: Overlying bowel gas pattern is normal. No suspicious soft tissue calcifications. IMPRESSION: No fracture. No acute osseous lesion. If there are persistent symptoms or continued clin ical suspicion for pathology, then MRI should be considered for further evaluation. Dictated by: Brittany Peacock MD, PhD on 06/27/2016 at 16:52 Approved by: Brittany Peacock MD, PhD on 06/27/2016 at 16:53
--- NOTE | 2016-06-27 16:56 | DRSVH ---
PROCEDURE: X-RAY CERVICAL SPINE, 2 OR 3 VIEWS INDICATIONS: pain TECHNIQUE: 3 view(s) of the cervical spine were acquired. COMPARISON: None. FINDINGS: Bones: No fractures or dislocations to the T1 level. The lateral masses of C1 appear intact on the odontoid view. No suspicious bony lesions. Multilevel degenerative disc disease and facet arthropath y are noted. Multilevel uncovertebral joint hypertrophy noted. Soft tissues: No prevertebral soft tissue swelling. IMPRESSION: No fracture. No acute osseous lesion. If there are persistent symptoms or continued clin ical suspicion for pathology, then MRI should be considered for further evaluation. Dictated by: Brittany Peacock MD, PhD on 06/27/2016 at 16:53 Approved by: Brittany Peacock MD, PhD on 06/27/2016 at 16:54
--- NOTE | 2016-06-27 16:58 | DRSVH ---
PROCEDURE: X-RAY PELVIS W/LAT HIP (LT) ([id number]) INDICATIONS: pain TECHNIQUE: AP pelvis with lateral view(s) of the left hip(s). COMPARISON: [facility], CR, PELVIS 1 OR 2VW, 11/03/2011, 21:42. [facility] FINDINGS: Bones: Postsurgical changes compatible with unipolar left hip arthroplasty are noted. Heterotopic c alcifications noted adjacent to the proximal femur. No fractures or dislocations. Pelvic ring appea rs intact. No suspicious bony lesions. Soft tissues: The visualized bowel gas pattern is normal. No suspicious soft tissue calcifications. IMPRESSION: No fracture. No osseous lesion. If there are persistent symptoms or clinical suspicion f or pathology, then repeat radiographs or advanced imaging (CT, MRI or bone scan) should be considered for further evaluation. Dictated by: Brittany Peacock MD, PhD on 06/27/2016 at 16:55 Approved by: Brittany Peacock MD, PhD on 06/27/2016 at 16:56
[2016-06-27] MEDS ORDERED: IBUP-1827 PO (17:33)
[2016-06-27 17:44] VITALS: BP 111/57; PULSE 81; RESP 18; O2SAT 100
[2016-08-06] MEDS ORDERED: DICY10CA13 PO (10:58)
[2016-08-06] MEDS ORDERED: BUSP15TA3 PO (10:58)
[2016-08-06] MEDS ORDERED: MULT-1018 PO (10:58)
[2016-08-06] MEDS ORDERED: TRAZ-115 PO (10:58)
[2016-08-06] MEDS ORDERED: BENZ0.5T3 PO (10:58)
[2016-08-06] MEDS ORDERED: SIME180C36 PO (10:58)
[2016-08-06] MEDS ORDERED: NYST1POW23 MC (10:58)
[2016-08-06] MEDS ORDERED: OMEP20TA24 PO (10:58)
[2016-08-06] MEDS ORDERED: CITA10TA14 PO (10:58)
[2016-08-06] MEDS ORDERED: PSYL798P2 PO (10:58)
[2016-08-06] MEDS ORDERED: ACET325T51 PO (10:58)
[2016-08-06] MEDS ORDERED: CHOL200047 PO (10:58)
[2016-08-06] MEDS ORDERED: PANT40TA3 PO (10:58)
[2016-08-06] MEDS ORDERED: SENN-133 PO (10:58)
[2016-08-06] MEDS ORDERED: VIT1CAPS7 PO (10:58)
[2016-08-06] MEDS ORDERED: ETAN50PE SQ (10:58)
[2016-08-06] MEDS ORDERED: ASPI-973 PO (10:58)
[2016-08-06] MEDS ORDERED: CALC600T12 PO (10:58)
[2016-08-06] MEDS ORDERED: MULT-909 PO (10:58)
[2016-08-06] MEDS ORDERED: CETI10CA PO (10:58)
[2016-08-06] MEDS ORDERED: LACT1TAB11 PO (10:58)
[2016-08-06] MEDS ORDERED: MUPI15CR11 TOP (10:58)
[2016-08-06] MEDS ORDERED: TERB12GE TP (10:58)
[2016-08-06] MEDS ORDERED: KEN25CR EXT (10:58)
[2016-09-03] MEDS ORDERED: PANT40TA3 PO (15:08)
[2016-09-03] MEDS ORDERED: ACET-2605 PO (15:08)
== END 2016-06-27 17:45 | disposition home or self-care (01) ==
LOC: EDBD 14:33 → SED 14:33
DX: S39.012A Strain of muscle, fascia and tendon of lower back, initial encounter (principal); S16.1XXA Strain of muscle, fascia and tendon at neck level, initial encounter; S20.229A Contusion of unspecified back wall of thorax, initial encounter; S00.93XA Contusion of unspecified part of head, initial encounter; W01.198A Fall on same level from slipping, tripping and stumbling with subsequent striking against other object, initial encounter; Y92.009 Unspecified place in unspecified non-institutional (private) residence as the place of occurrence of the external cause; Y93.89 Activity, other specified; Y99.8 Other external cause status; I10 Essential (primary) hypertension; E07.9 Disorder of thyroid, unspecified; Z88.2 Allergy status to sulfonamides; Z88.8 Allergy status to other drugs, medicaments and biological substances

== ENCOUNTER 2016-08-21 08:50 | Day surgery (SDC) | payer MEDICARE, MEDICAID ==
[~2016-08-21] VITALS: Ht 152.4 cm; Wt 54.0 kg
[~2016-08-21 08:50] MED LIST changes: +ACET325T51 PO; +ASPI-973 PO; +BENZ0.5T3 PO; +CALC600T12 PO; +CETI10CA PO; +CHOL200047 PO; +CITA10TA14 PO; -ERGO2000 PO; +ETAN50PE SQ; +KEN25CR EXT; +LACT1TAB11 PO; +MULT-1018 PO; +MULT-909 PO; +MUPI15CR11 TOP; +NYST1POW23 MC; +OMEP20TA24 PO; +PANT40TA3 PO; +PSYL798P2 PO; +SENN-133 PO; +SIME180C36 PO; +TERB12GE TP; +TRAZ-115 PO; +VIT1CAPS7 PO; -[UNRECOGNIZED DRUG - OTHER]; -[UNRECOGNIZED DRUG - OTHER] PO
[2016-08-21] MEDS ORDERED: MethylprednisoLONE Depot 80 mg/mL Inj ONE (08:51)
[2016-08-21] MEDS ORDERED: Iohexol 240 mg/mL 10 mL Inj ONE (08:51)
[2016-08-21 09:16] VITALS: BP 109/67; PULSE 89; RESP 18; O2SAT 96
[2016-08-21 09:35] VITALS: BP 132/76; PULSE 85; RESP 16; O2SAT 92
[2016-08-21 09:39] VITALS: BP 140/70; PULSE 84; RESP 16; O2SAT 96
--- NOTE | 2016-08-21 14:57 | PCM.PROC ---
Procedure Note Date of Service: August 21, 2016 Pre Procedure Diagnosis: PROCEDURE: Lumbar Interlaminar epidural steroid injection. L4-L5 ASA / ANTI-COAGULATION . No asa x 7 days. PRE-PROCEDURE DIAGNOSIS: Lumbar spinal stenosis POST-PROCEDURE DIAGNOSIS: same INDICATION: 71-year-old patient with low back and leg pain consistent with lumbar spinal stenosis with neurogenic claudication PERFORMED BY: Cl Ramos MD DESCRIPTION OF PROCEDURE: Patient was met in the holding area. Consent was signed, site was confirmed and all questions were answered. Patient was taken to the procedure suite and placed prone on the procedure table. Area was prepped and draped in sterile fashion. Local anesthesia with 1% lidocaine was injected. An 18-gauge Touhy needle was advanced toward the interlaminar space using fluoroscopic guidance after optimizing the AP view. A loss of resistance syringe was attached as we approached the epidural space in the lateral view. After [id number]-bh-[id number] was obtained, radioopaque contrast was injected under live fluro which confirmed epidural placement without intravascular uptake. Then , 80 mg depomedrol was injected without difficulty. ANESTHESIA: Local. EBL: None. No Blood Products Used COMPLICATIONS: None SPECIMENS: None POST-PROCEDURE DISPOSITION: Patient was returned to the holding area in stable condition. They were discharged home when all discharge criteria were met. Evaluation/Physical Exam before discharge revealed: DISCHARGE MEDICATIONS: FOLLOW UP: Keep appointment for sacroiliac joint injections Cl Ramos MD * Pain Management * Anesthesiology .ED: Y: Patient given care and follow up instructions Cl Ramos MD August 21, 2016 14:57
[2016-09-03] MEDS ORDERED: PANT40TA3 PO (15:08)
[2016-09-03] MEDS ORDERED: ACET-2605 PO (15:08)
[2016-10-01] MEDS ORDERED: B IN1TAB2 PO (14:28)
== END 2016-08-21 23:59 | disposition home or self-care (01) ==
LOC: END 08:50
PROVIDERS: ATTEND Anesthesiology Pain Medicine
DX: M48.06 Spinal stenosis, lumbar region (principal); M46.1 Sacroiliitis, not elsewhere classified; F25.0 Schizoaffective disorder, bipolar type
CPT/HCPCS: 62323; J1040

== ENCOUNTER 2016-09-04 08:23 | Day surgery (SDC) | payer MEDICARE, MEDICAID ==
[~2016-09-04] VITALS: Ht 152.4 cm; Wt 52.0 kg
[~2016-09-04 08:23] MED LIST changes: +ACET-2605 PO
[2016-09-04] MEDS ORDERED: Bupivacaine-MPF 0.25% 30 mL Inj ONE (08:24)
[2016-09-04] MEDS ORDERED: Iohexol 240 mg/mL 10 mL Inj ONE (08:24)
[2016-09-04] MEDS ORDERED: MethylprednisoLONE Depot 80 mg/mL Inj ONE (08:24)
[2016-09-04 08:56] VITALS: BP 140/81; PULSE 79; RESP 16; O2SAT 97
--- NOTE | 2016-09-04 14:56 | PCM.PROC ---
Procedure Note Date of Service: September 04, 2016 Pre Procedure Diagnosis: PROCEDURE: LEFT Sacroiliac joint injection (fluoroscopically guided) PRE-PROCEDURE DIAGNOSIS: Sacroiliitis POST-PROCEDURE DIAGNOSIS: same INDICATION: 71-year-old patient with posterior hip pain, suggestive of sacroiliitis ASA / ANTICOAGULATION: No asa x 7 days PERFORMED BY: Cl Ramos MD DESCRIPTION OF PROCEDURE: Patient was met in the holding area. Consent was signed, site was confirmed and all questions were answered. Patient was taken to the procedure suite and placed prone on the procedure table. Local anesthesia with 1% lidocaine was injected into the epidermidis and dermis. A 22-gauge Quincke spinal needle was advanced towards the sacroiliac joint after visualization was optimized fluoroscopically in the AP view. Proper positioning in the joint was confirmed by injecting contrast. We then took a lateral view to reconfirm proper positioning in the sacroiliac joint. 80mg depomedrol with 2 cc of 0.25% Bupivicaine injected without difficulty. ANESTHESIA: Local. EBL: None. No Blood Products Used COMPLICATIONS: None SPECIMENS: None POST-PROCEDURE DISPOSITION: Patient tolerated the procedure well was returned to the holding area in stable condition. They were discharged home when all discharge criteria were met. Fluro time: See Radiology Report Evaluation/Physical Exam before discharge revealed: DISCHARGE MEDICATIONS: none FOLLOW UP: Keep follow-up appointment Cl Ramos MD * Pain Management * Anesthesiology Cl Ramos MD September 04, 2016 14:55
[2016-10-01] MEDS ORDERED: B IN1TAB2 PO (14:28)
== END 2016-09-04 23:59 | disposition home or self-care (01) ==
LOC: END 08:23
PROVIDERS: ATTEND Anesthesiology Pain Medicine
DX: M46.1 Sacroiliitis, not elsewhere classified (principal); I10 Essential (primary) hypertension; F31.11 Bipolar disorder, current episode manic without psychotic features, mild; M48.06 Spinal stenosis, lumbar region
CPT/HCPCS: G0260; J1040

== ENCOUNTER 2016-10-02 09:10 | Day surgery (SDC) | payer MEDICARE, MEDICAID ==
[~2016-10-02] VITALS: Ht 152.4 cm; Wt 56.7 kg
[~2016-10-02 09:10] MED LIST changes: -ACET325T51 PO; +B IN1TAB2 PO; -LACT1TAB11 PO; -NYST1POW23 MC
[2016-10-02] MEDS ORDERED: MethylprednisoLONE Depot 80 mg/mL Inj ONE (09:11)
[2016-10-02] MEDS ORDERED: Bupivacaine-MPF 0.25% 30 mL Inj ONE (09:11)
[2016-10-02] MEDS ORDERED: Iohexol 240 mg/mL 10 mL Inj ONE (09:11)
[2016-10-02 10:04] VITALS: BP 116/65; PULSE 64; RESP 14; O2SAT 98
--- NOTE | 2016-10-02 15:45 | PCM.PROC ---
Procedure Note Date of Service: Oct 02, 2016 Pre Procedure Diagnosis: PROCEDURE: RIGHT Sacroiliac joint injection (fluoroscopically guided) PRE-PROCEDURE DIAGNOSIS: Sacroiliitis POST-PROCEDURE DIAGNOSIS: same INDICATION: 71-year-old female with posterior hip pain, suggestive of sacroiliitis ASA / ANTICOAGULATION: No asa x 7 days PERFORMED BY: Cl Ramos MD DESCRIPTION OF PROCEDURE: Patient was met in the holding area. Consent was signed, site was confirmed and all questions were answered. Patient was taken to the procedure suite and placed prone on the procedure table. Area was prepped and draped in sterile fashion Local anesthesia with 1% lidocaine was injected into the epidermidis and dermis. A 22-gauge Quincke spinal needle was advanced towards the sacroiliac joint after visualization was optimized fluoroscopically in the AP view. Proper positioning in the joint was confirmed by injecting contrast. We then took a lateral view to reconfirm proper positioning in the sacroiliac joint. 80mg depomedrol with 2 cc of 0.25% Bupivicaine injected without difficulty. ANESTHESIA: Local. EBL: None. No Blood Products Used COMPLICATIONS: None SPECIMENS: None POST-PROCEDURE DISPOSITION: Patient tolerated the procedure well was returned to the holding area in stable condition. They were discharged home when all discharge criteria were met. Fluro time: See Radiology Report Evaluation/Physical Exam before discharge revealed: DISCHARGE MEDICATIONS: none FOLLOW UP: Keep scheduled follow-up Cl Ramos MD * Pain Management * Anesthesiology Cl Ramos MD Oct 02, 2016 15:45
== END 2016-10-02 23:59 | disposition home or self-care (01) ==
LOC: END 09:10
PROVIDERS: ATTEND Anesthesiology Pain Medicine
DX: M46.1 Sacroiliitis, not elsewhere classified (principal); I10 Essential (primary) hypertension; F31.11 Bipolar disorder, current episode manic without psychotic features, mild
CPT/HCPCS: G0260; J1040